=== PATIENT | male | born 1985 | race Caucasian/White ===

== ENCOUNTER 2022-08-06 18:01 | Emergency (ER) | payer OTHER ==
[2022-08-06 18:12] VITALS: BP 138/84
[2022-08-06] MEDS ORDERED: CETIRIZINE 10 MG TABLET PO STA (18:34)
[2022-08-06] MEDS ORDERED: PSEUDOEPHEDRINE 30 MG TABLET PO STA (18:34)
--- NOTE | 2022-08-06 18:37 | ED Physician Documentation ---
PD HPI URI - Stated complaint Stated Complaint: SOA,CONGESTION,CHILLS - Chief complaint Chief Complaint: Fever - History obtained from History obtained from: Patient - History of Present Illness Timing - onset: How many days ago (2) Timing duration: Days (2) Timing details: Gradual onset Pain level max: 3 Pain level now: 3 Associated symptoms: Fever, Chills, Nasal congestion, Rhinorrhea, Sinus pain, Sore throat, Dry cough. No: NVD Contributing factors: Sick contact - Additional information Additional information: 37-year-old male received an MMR vaccination 3 days ago, since that time he has had fever, chills, nasal congestion, rhinorrhea and cough. He states he recently had COVID as well. Has been taking Tylenol without relief. Has not taken anything for congestion or coughing. He states his nose feels stuffy and that is making it hard for him to sleep and breathe. No nausea or vomiting. No chest pain. Review of Systems Constitutional: reports: Fever, Chills Skin: denies: Rash Musculoskeletal: denies: Neck pain, Back pain PD PAST MEDICAL HISTORY - Past Medical History Past Medical History: No - Present Medications Home Medications: Ambulatory Orders Medication Instructions Recorded Confirmed Benzonatate [Tessalon] 200 mg PO TID PRN #30 cap 08/06/22 Cetirizine HCl/Pseudoephedrine 1 each PO BID PRN #30 tab 08/06/22 [Zyrtec-D Tablet] - Allergies Allergies/Adverse Reactions: Allergies Allergy/AdvReac Type Severity Reaction Status Date / Time aspirin Allergy Hives Verified 08/06/22 18:12 ibuprofen Allergy Hives Verified 08/06/22 18:12 - Living Situation Living Arrangement: reports: At home - Social History Does the pt smoke?: No Does the pt have substance abuse?: No PD ED PE NORMAL - Vitals Vital signs reviewed: Yes - General General: Alert and oriented X 3, No acute distress, Well developed/nourished - HEENT HEENT: PERRL, Ears normal, Moist mucous membranes, Pharynx benign, Other (No sinus tenderness) - Neck Neck: Supple, no meningeal sign - Cardiac Cardiac: RRR, No murmur, Strong equal pulses - Respiratory Respiratory: No respiratory distress, Clear bilaterally - Abdomen Abdomen: Soft, Non tender, Non distended - Derm Derm: Warm and dry - Neuro Neuro: Alert and oriented X 3 - Psych Psych: Normal mood, Normal affect Results - Vitals Vitals: Vital Signs - 24 hr 08/06/22 18:09 Temperature 37.8 C Heart Rate 129 H Respiratory 20 Rate Blood Pressure 138/84 H O2 Saturation 97 Oxygen O2 Source Room air - Labs Labs: Laboratory Tests 08/06/22 18:15 Nasal Adenovirus (PCR) NOT DETECTED Nasal B. parapertussis DNA (PCR) NOT DETECTED Nasal Coronavir 229E PCR NOT DETECTED Nasal Coronavir HKU1 PCR NOT DETECTED Nasal Coronavir NL63 PCR NOT DETECTED Nasal Coronavir OC43 PCR NOT DETECTED Nasal Enterovir/Rhinovir PCR NOT DETECTED Nasal Influenza B PCR NOT DETECTED Nasal Influenza A PCR NOT DETECTED Nasal Parainfluen 1 PCR NOT DETECTED Nasal Parainfluen 2 PCR NOT DETECTED Nasal Parainfluen 3 PCR NOT DETECTED Nasal Parainfluen 4 PCR NOT DETECTED Nasal RSV (PCR) NOT DETECTED Nasal B.pertussis DNA PCR NOT DETECTED Nasal C.pneumoniae (PCR) NOT DETECTED Rosita Human Metapneumo PCR NOT DETECTED Nasal M.pneumoniae (PCR) NOT DETECTED Nasal SARS-CoV-2 (PCR) DETECTED A PD Medical Decision Making - ED course Complexity details: reviewed results, re-evaluated patient, considered differential, d/w patient ED course: Patient is well-appearing, nontoxic. Afebrile. No hypoxia. No respiratory distress. Possible asthma reaction. He has positive for COVID but states that he was recently sick with COVID. We will place him on decongestants for home and cough medication and [place] Patient counseled regarding signs and symptoms for which I believe and urgent re- evaluation would be necessary. Patient with good understanding of and agreement to plan and is comfortable going home at this time This document was made in part using voice recognition software. While efforts are made to proofread this document, sound alike and grammatical errors may occur. Departure - Departure Disposition: 01 Home, Self Care Clinical Impression: Viral URI Vaccine reaction Qualifiers: Encounter type: initial encounter Qualified Code(s): T50.Z95A - Adverse effect of other vaccines and biological substances, initial encounter Condition: Good Instructions: ED Viral Syndrome Follow-Up: ROSITA Tejeda [Provider Group] - Within 1 week Prescriptions: Benzonatate [Tessalon] 200 mg PO TID PRN #30 cap PRN Reason: Cough Cetirizine HCl/Pseudoephedrine [Zyrtec-D Tablet] 1 each PO BID PRN #30 tab PRN Reason: nasal congestion Comments: Your prescriptions were [facility] to [facility] in [place]. You can use Tylenol at home as well. Please return if you worsen. This should improve over the next 2 to 3 days. Forms: Activity restrictions Discharge Date/Time: 08/06/22 18:44
[2022-08-06 19:10] LABS: CORONAVIRUS 229E-RESP PCR NOT DETECTED; CORONAVIRUS HKU1-RESP PCR NOT DETECTED; CORONAVIRUS NL63-RESP PCR NOT DETECTED; CORONAVIRUS OC43-RESP PCR NOT DETECTED
[2022-08-06 19:11] LABS: B. PARAPERTUSSIS- RESP PCR PAN NOT DETECTED; B. PERTUSSIS- RESP PCR PANEL NOT DETECTED; C. PNEUMONIAE- RESP PCR PANEL NOT DETECTED; HUMAN METAPNEUMOVIRUS NOT DETECTED; INFLUENZA A- RESP PCR PANEL NOT DETECTED; INFLUENZA B - RESP PCR PANEL NOT DETECTED; M. PNEUMONIAE- RESP PCR PANEL NOT DETECTED; PARAINFLUENZA VIRUS 1 NOT DETECTED; PARAINFLUENZA VIRUS 2 NOT DETECTED; PARAINFLUENZA VIRUS 3 NOT DETECTED; PARAINFLUENZA VIRUS 4 NOT DETECTED; RHINOVIRUS/ENTEROVIRUS NOT DETECTED; RSV- RESP PCR PANEL NOT DETECTED; SARS-CoV-2 -RESP PCR PANEL DETECTED
== END 2022-08-06 18:44 | disposition home or self-care (01) ==
LOC: ED 18:01
DX: U07.1 COVID-19 (principal); T50.Z95A Adverse effect of other vaccines and biological substances, initial encounter
CPT/HCPCS: 87633; 99283; A9270

== ENCOUNTER 2023-03-06 12:00 | Outpatient (CLI) | payer OTHER | END 2023-03-06 12:15 | disposition home or self-care (01) | LOC: LAB.N 12:00 | PROVIDERS: ATTEND Family Medicine | DX: H60.02 Abscess of left external ear (principal) | CPT/HCPCS: 87070; 87205 ==

== ENCOUNTER 2023-03-16 22:11 | Emergency (ER) | payer OTHER ==
--- NOTE | 2023-03-16 22:22 | ED Physician Documentation ---
PD HPI UPPER EXT INJURY - Stated complaint Stated Complaint: LT ARM INJ - History obtained from History obtained from: Patient - Additonal information Additional information: 37-year-old gentleman who is active duty in the [employer] had a minor/conservatively managed partial bicep tear of the left arm 6 years ago. He did a lot of jujitsu yesterday but there was no specific injury and he awoke today noticing some bruising on his bicep and he is anxious that he reinjured his bicep. PD PAST MEDICAL HISTORY - Present Medications Home Medications: Ambulatory Orders Medication Instructions Recorded Confirmed No Known Home Medications 03/16/23 03/16/23 - Allergies Allergies/Adverse Reactions: Allergies Allergy/AdvReac Type Severity Reaction Status Date / Time aspirin Allergy Hives Verified 03/16/23 22:24 ibuprofen Allergy Hives Verified 03/16/23 22:24 - Social History Does the pt smoke?: No Does the pt have substance abuse?: No PD ED PE NORMAL - Vitals Vital signs reviewed: Yes - General General: Alert and oriented X 3, No acute distress - Extremities Extremities: Other (There is a possible Kenneth deformity of the bicep, he is quite well muscled so it is a little hard to tell. There is a bruise over the bicep as well. Strength in bicipital and coracobrachialis flexion is excellent.) - Neuro Neuro: Alert and oriented X 3, Normal speech - Psych Psych: Normal mood, Normal affect Results - Vitals Vitals: Vital Signs - 24 hr 03/16/23 22:14 Temperature 36.6 C Heart Rate 64 Respiratory 18 Rate Blood Pressure 135/81 H O2 Saturation 100 Oxygen O2 Source Room air PD Medical Decision Making - ED course ED course: He may have a partial biceps tear but it is certainly not limiting, as such he is placed in a sling here and referred back to PCM for Ortho follow-up. Departure - Departure Disposition: Home, Self Care Clinical Impression: Injury of tendon of biceps Condition: Good Record reviewed to determine appropriate education?: Yes Comments: As discussed while you may have a minor/partial bicep tear I doubt will need surgery but you should probably talk with your primary care physician [place] Sunday [place] Wear the sling when up and around but you do not need to wear it at rest or when not really doing anything. You can take ibuprofen if pain is worse. Forms: PCP List Discharge Date/Time: 03/16/23 22:34
[2023-03-16 22:25] VITALS: BP 135/81; O2SAT 100
== END 2023-03-16 22:34 | disposition home or self-care (01) ==
LOC: ED 22:11
DX: S49.92XA Unspecified injury of left shoulder and upper arm, initial encounter (principal); X58.XXXA Exposure to other specified factors, initial encounter
CPT/HCPCS: 99282; 99283

== ENCOUNTER 2023-05-29 07:51 | Outpatient (CLI) | payer OTHER ==
--- NOTE | 2023-05-30 11:05 | MRI Report ---
PROCEDURE: Shoulder LT WO INDICATIONS: L SHOULDER PAIN TECHNIQUE: Noncontrast oblique coronal T2 fast spin echo with fat saturation, oblique sagittal T1 spin echo and T2 fast spin echo with fat saturation, axial T1 spin echo and T2 fast spin echo with fat saturation t hrough the shoulder. COMPARISON: None. FINDINGS: Image quality: Excellent. Rotator cuff: There is moderate supraspinatus tendinosis. There is partial-thickness tear along the bursal surface of distal supraspinatus tendon. No tendon rupturing. No suspicious mass muscle atrophy . Mild infraspinatus and subscapularis tendinosis. No infraspinous or subscapularis muscle atrophy. Bones and bursae: No bone marrow contusions or fractures. Mild acromioclavicular and glenohumeral coco int degeneration. There is reactive edema in the distal clavicle and acromion. No edema is also seen in humeral head and glenoid. The acromion demonstrates conventional anatomy, without an os acromiale . No pathologic subacromial/subdeltoid bursal fluid is present. Capsule and soft tissues: In the absence of intra-articular contrast, the labrum and glenohumeral li gaments appear intact. There is mild tendinosis of the intra-articular segment of the long head of th e biceps tendon which demonstrates normal location and morphology. The rotator interval appears irre gular. The coracohumeral ligament is thickened. IMPRESSION: 1. Partial-thickness tear of the distal supraspinatus tendon along the bursal surface. There is moder ate supraspinatus tendinosis. No tendon rupturing. No muscle atrophy. 2. Mild infraspinous and subscapular tendinosis. 3. Mild tendinosis of the intra-articular segment of the long head biceps tendon. 4. Mild acromioclavicular and glenohumeral arthrosis. 5. Mild bone marrow edema involving the distal clavicle, acromion, humeral head and glenoid process. Etiology indeterminate. Differential diagnoses are reactive edema related to arthritic change and mil d bone contusions, there is clinical history of trauma. 6. Irregular rotator interval and thickening of coracohumeral ligament. Recommend clinical correlatio n for adhesive capsulitis. Reviewed by: Paula Hartmann MD on 05/30/2023 11:04 AM PST Approved by: Paula Hartmann MD on 05/30/2023 11:04 AM PST Station ID: [id number]
== END 2023-05-29 07:52 | disposition home or self-care (01) ==
LOC: DI 07:51
PROVIDERS: ATTEND Orthopaedic Surgery
DX: M75.112 Incomplete rotator cuff tear or rupture of left shoulder, not specified as traumatic (principal); M67.814 Other specified disorders of tendon, left shoulder; M19.012 Primary osteoarthritis, left shoulder; R93.6 Abnormal findings on diagnostic imaging of limbs; R93.89 Abnormal findings on diagnostic imaging of other specified body structures

== ENCOUNTER 2023-10-22 11:56 | Outpatient (CLI) | payer OTHER ==
--- NOTE | 2023-10-22 15:13 | XRAY Report ---
PROCEDURE: Knee 1-2V RT INDICATIONS: KNEE PAIN, RIGHT TECHNIQUE: 2 views of the knee(s) were acquired. COMPARISON: None. FINDINGS: Bones: No fractures or dislocations. No suspicious bony lesions. Soft tissues: Small to moderate knee joint effusion. No suspicious soft tissue calcifications or mas ses. IMPRESSION: No acute right knee fracture or dislocation. Small to moderate suprapatellar joint effusion. Reviewed by: Ryan Santos MD on 10/22/2023 3:11 PM PDT Approved by: Ryan Santos MD on 10/22/2023 3:11 PM PDT Station ID: [id number]
== END 2023-10-22 11:57 | disposition home or self-care (01) ==
LOC: DI.N 11:56
PROVIDERS: ATTEND Physician Assistant Medical
DX: M25.461 Effusion, right knee (principal); M25.561 Pain in right knee